=== PATIENT | female | born 1975 | race Caucasian/White ===

== ENCOUNTER 2016-07-19 06:32 | Emergency (ER) | payer OTHER ==
[2016-07-19] MEDS ORDERED: BELLADONNA ALKALOIDS/PHENOBARB 60 ML BTL PO ONE (07:01)
[2016-07-19] MEDS ORDERED: LIDOCAINE HCL 20 ML UDC PO ONE (07:01)
[2016-07-19] MEDS ORDERED: MAG HYDROX/ALUMINUM HYD/SIMETH 30 ML UDC PO ONE (07:01)
[2016-07-19] MEDS ORDERED: PANTOPRAZOLE SODIUM 40 MG TABLET.EC PO ONE (07:01)
[2016-07-19] MEDS ORDERED: PANTOPRAZOLE SODIUM 40 MG TABLET.EC ONE (07:02)
--- NOTE | 2016-07-19 07:13 | ERNOTE ---
Abdominal HPI - Narrative Date of Service: 07/19/16 - General Chief Complaint: Abdominal Pain Source: patient - Immun/Allergies/Home Medications Immunizatons: IMMUNIZATION HX Immunizations Up to Date Yes History of Influenza Vaccine No Hx Pneumococcal Vaccination No Allergies/Adverse Reactions: Allergies aripiprazole [From Abilify] Allergy (Verified 07/19/16 06:54) ketorolac tromethamine [From Toradol] Allergy (Verified 07/19/16 06:54) Penicillins Allergy (Verified 07/19/16 06:54) Home Medications: HOME MEDICATIONS NK [No Home Medication] 07/19/16 [Last Taken Unknown] - History of Present Illness Narrative: 41 year old that had a sudden onset of LUQ pain that radiates to the epigastrium since 0300. The pain is severe and sharp. She was seen at [facility] and evaluated. She was transferred to [facility] for a supposed bowel obstruction. The CT was read by the ED physician and the radiology report was not seen by him. The radiology report clearly states that there was not bowel obstruction. She continues to have LUQ pain. The CT scan demonstrated large amounts of stool present. The CBC, lipase, and chemistries done at [facility] were unremarkable. Timing: constant Quality: severe Activities at Onset: sleep Modifying Factors - (Improves): Present: other - nothing Modifying Factors - (Worsens): Present: other - nothing Associated Symptoms: Present: denies symptoms Prior Abdominal Problems: Present: none Review of Systems - Review of Systems Constitutional: Present: no symptoms reported EYE: Present: no symptoms reported ENT: Present: no symptoms reported Respiratory: Present: no symptoms reported Cardiology: Present: no symptoms reported Gastrointestinal/Abdominal: Present: See HPI Genitourinary: Present: no symptoms reported Musculoskeletal: Present: no symptoms reported Skin: Present: no symptoms reported Neurological: Present: no symptoms reported Endocrine: Present: no symptoms reported Hematologic/Lymphatic: Present: no symptoms reported Psych: Present: no symptoms reported - Patient's Past Medical History Patient History - Medical: Anxiety Patient History - Cardiac/Respiratory: No pertinent hx Patient History - Cancer: No Hx of Cancer Patient History - Surgical Procedures: Hysterectomy Patient History - Other: None LMP (females 10-50): other - Social History Living Situations: alone Smoking Status: Current every day smoker Patient requests Smoking Cessation Consult: No Initiate information on Smoking Cessation: No Alcohol Use: rarely Drug Use: marijuana - Immunizations Immunizations Up to Date: Yes Hx Pneumococcal Vaccination: No History of Influenza Vaccine: No Physical Exam - Physical Exam General Appearance: Present: mild distress Eye Exam: Normal inspection: bilateral Ears, Nose, Throat: Present: normal ENT inspection Neck: Present: normal inspection Respiratory: Present: no respiratory distress Cardiovascular/Chest: Present: regular rate, rhythm Gastrointestinal/Abdominal: Present: nondistended, soft, tenderness - mild tenderness on palpation Neurological Exam: Present: alert, oriented, normal mood/affect, track man II-XII nml as tested Skin Exam: Present: normal color ED Progress - Results and Orders Patient's Lab Results:: I have reviewed the patient's lab results. - Vital Signs Patient's Vital Signs:: I have reviewed the patient's vital signs. Vital Signs: Vital Signs 07/19/16 06:35 Temperature 36.2 C L Pulse Rate 93 Respiratory 18 Rate Blood Pressure 108/64 O2 Sat by Pulse 97 Oximetry - Progress/Reassessment Chief Complaint: Abdominal Pain Progress:: Improved Progress Note-Subjective: 07/19/16 08:05 She will be given Golytely until a bowel movement is achieved. Departure - Departure Clinical Impression: Abdominal pain Disposition: Home self-care Condition: Fair Instructions: Abdominal Pain, Adult, [id number] Print Language: Tanzanian Additional Instructions: It is likely that the pain will resolve once you have had a bowel movement. Drink the Golytely until you have a bowel movement. If the pain is worse return to the ED.
[2016-07-19] MEDS ORDERED: ONDANSETRON HCL/PF 2 MG/ML VIAL ONE (07:35)
[2016-07-19] MEDS ORDERED: ONDANSETRON HCL/PF 2 MG/ML VIAL IV ONE (07:35)
[2016-07-19] MEDS ORDERED: HYDROmorphone HCL 1 MG/ML DISP.SYRIN IV ONE (07:53)
[2016-07-19] MEDS ORDERED: SOD CHLORIDE/NAHCO3/KCL/PEG'S 4,000 ML BTL PO PRN (08:04)
[2016-07-19] MEDS ORDERED: HYDROmorphone HCL 1 MG/ML DISP.SYRIN ONE (08:15)
[2016-07-19 08:26] VITALS: BP 102/60
== END 2016-07-19 09:05 | disposition home or self-care (01) ==
LOC: ER 06:32
DX: R10.9 Unspecified abdominal pain (principal); F17.210 Nicotine dependence, cigarettes, uncomplicated

== ENCOUNTER 2017-03-18 17:12 | Emergency (ER) | payer OTHER ==
[2017-03-18 17:59] LABS: Hematocrit 35.8 % (37.0-47.0); Hemoglobin 12.2 gm/dL (12.5-16.0); Mean Cell Volume 91.1 fl (78-100); Mean Corpuscular Hgb Conc 34.1 g/dl (32-36); Mean Platelet Volume 9.4 fl (6.0-9.5); Neutrophil # 4.4 K/mm3 (1.3-6.0); Neutrophil % 59.5 % (42-75.0); Platelet Count 279 K/mm3 (150-450); Red Blood Count 3.93 M/mm3 (4.2-5.4); Red Cell Distribution Width 13.6 % (11.5-14.0); White Blood Count 7.4 K/mm3 (4.0-10.5)
[2017-03-18 18:00] LABS: Urine Bilirubin Negative (NEGATIVE); Urine Blood Negative /ul (NEGATIVE); Urine Ketone Negative (NEGATIVE); Urine Nitrite Negative (NEGATIVE); Urine Protein Negative (NEGATIVE); Urine Specific Gravity 1.015 SP.GR. (1.005-1.010); Urine Urobilinogen Normal (NORMAL)
[2017-03-18 18:13] LABS: Urine Appearance Clear; Urine Bacteria TRACE; Urine Color Yellow; Urine RBC None Seen /hpf (0-5); Urine WBC TRACE /hpf (0-5)
--- NOTE | 2017-03-18 18:14 | ERNOTE ---
ER Female HPI Date of Service: 03/18/17 Stated Complaint: LOWER ABD PAIN Time Seen by Provider: 03/18/17 17:30 Source: patient Exam Limitations: no limitations Immunizations: IMMUNIZATION HX Immunizations Up to Date Yes History of Influenza Vaccine No Hx Pneumococcal Vaccination No Allergies/Adverse Reactions: Allergies aripiprazole [From Abilify] Allergy (Verified 03/18/17 17:20) ketorolac tromethamine [From Toradol] Allergy (Verified 03/18/17 17:20) Penicillins Allergy (Verified 03/18/17 17:20) Home Medications: HOME MEDICATIONS traMADol HCL [Ultram] 50 mg PO DAILY PRN #10 tablet 03/18/17 [Last Taken Unknown ] - History of Present Illness Narrative: Here for chronic abdominal pain. Patient states that she had an ultrasound done at [facility] last week which showed a 3.5 cm left ovarian cyst. Since states she is worried that they did not see her ovary on the right side. She complains that she has had this chronic abdominal pain for a while and she wants me to cut out her cyst on her ovary. She has not taken any medication for this pain. She feels bloated. She's had no fevers some nausea but no vomiting. Review of Systems - Review of Systems Constitutional: Present: no symptoms reported EYE: Present: no symptoms reported ENT: Present: no symptoms reported Respiratory: Present: no symptoms reported Cardiology: Present: no symptoms reported Gastrointestinal/Abdominal: Present: See HPI Musculoskeletal: Present: no symptoms reported Skin: Present: no symptoms reported - Patient's Past Medical History Patient History - Medical: Anxiety Patient History - Cardiac/Respiratory: No pertinent hx Patient History - Cancer: No Hx of Cancer Patient History - Surgical Procedures: Hysterectomy Patient History - Other: None - Social History Living Situations: home Psych History: Hx of Anxiety Alcohol Use: none Drug Use: none, marijuana - Immunizations Immunizations Up to Date: Yes Hx Pneumococcal Vaccination: No History of Influenza Vaccine: No Physical Exam - Physical Exam General Appearance: Present: wd/wn, alert, no apparent distress Head Exam: Present: normal inspection, no evidence of injury Neck: Present: normal inspection Respiratory: Present: no respiratory distress, normal breath sounds, no accessory muscle use Cardiovascular/Chest: Present: regular rate, rhythm, no murmur, normal peripheral pulses Gastrointestinal/Abdominal: Present: normal bowel sounds, nontender, soft, no organomegaly, other - patient has a minimal abdominal distention there are no masses belly is completely soft there is no rebound tenderness. Pelvic Exam: Present: other - patient states that she has had pelvic bleeding off and on but she has none now. She is not dizzy her vitals are stable. Extremity Exam: Present: normal inspection ED Progress - Results and Orders Patient's Lab Results:: I have reviewed the patient's lab results. - Vital Signs Patient's Vital Signs:: I have reviewed the patient's vital signs. Vital Signs: Vital Signs 03/18/17 03/18/17 17:15 17:32 Temperature 37.1 C Pulse Rate 92 89 Respiratory 12 Rate Blood Pressure 133/86 129/75 O2 Sat by Pulse 98 98 Oximetry - X-Ray X-Ray #1 X-Ray: abdomen - Progress/Reassessment Chief Complaint: Genitourinary Problem Plan - Plan Plan: Patient's white count is within normal limits her urinalysis is normal her urine tox screen is positive for cannabis, her x-ray reveals large amount of stool. I offered the patient Ultram but she refused this examiner will give her a prescription for Ultram regardless just in case she needs it. 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 Departure Clinical Impression: Chronic abdominal pain - Departure Disposition: Home self-care Condition: Good Instructions: Chronic Pain Referrals: Sybil Dwyer ARNP [Primary Care Provider] - Prescriptions: traMADol HCL [Ultram] 50 mg PO DAILY PRN #10 tablet PRN Reason: Pain
[2017-03-18 18:31] LABS: Cocaine Ur Negative (NEGATIVE); Urine Barbiturate Negative (NEGATIVE); Urine Benzodiazepines Negative (NEGATIVE); Urine Opiates Negative (NEGATIVE); Urine PCP Negative (NEGATIVE); Urine THC Positive (NEGATIVE)
[2017-03-18 18:43] VITALS: BP 112/49
== END 2017-03-18 18:48 | disposition home or self-care (01) ==
LOC: ER 17:12
DX: R10.9 Unspecified abdominal pain (principal); G89.29 Other chronic pain

== ENCOUNTER 2017-05-04 11:54 | Emergency (ER) | payer OTHER ==
[2017-05-04] MEDS ORDERED: METOCLOPRAMIDE HCL 5 MG/ML VIAL IV ONE (12:09)
[2017-05-04] MEDS ORDERED: diphenhydrAMINE HCL 50 MG/ML VIAL IV ONE (12:09)
[2017-05-04] MEDS ORDERED: NORMAL SALINE 1,000 ML IV ONE (12:09)
[2017-05-04] MEDS ORDERED: DIATRIZOATE MEGLUMINE, SODIUM 30 ML BTL PO ONE (12:14)
[2017-05-04] MEDS ORDERED: DIATRIZOATE MEGLUMINE, SODIUM 30 ML BTL ONE (12:19)
[2017-05-04] MEDS ORDERED: diphenhydrAMINE HCL 50 MG/ML VIAL ONE (12:19)
[2017-05-04] MEDS ORDERED: METOCLOPRAMIDE HCL 5 MG/ML VIAL ONE (12:19)
[2017-05-04 12:25] LABS: Hematocrit 39.3 % (37.0-47.0); Hemoglobin 13.4 gm/dL (12.5-16.0); Mean Cell Volume 90.3 fl (78-100); Mean Corpuscular Hemoglobin 30.8 pg (27-31); Mean Corpuscular Hgb Conc 34.1 g/dl (32-36); Mean Platelet Volume 9.6 fl (6.0-9.5); Neutrophil # 3.4 K/mm3 (1.3-6.0); Neutrophil % 53.5 % (42-75.0); Platelet Count 311 K/mm3 (150-450); Red Blood Count 4.35 M/mm3 (4.2-5.4); Red Cell Distribution Width 13.5 % (11.5-14.0); White Blood Count 6.4 K/mm3 (4.0-10.5)
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
[2017-05-04 12:51] LABS: Albumin * 4.2 gm/dl (3.4-5.0); Anion Gap 13.9 mmol/L (6.8-13.8); BUN/Creatinine Ratio 13.9 (9.0-21.6); Bilirubin, Total 0.2 mg/dL (0.0-1.1); Ca. Corrected For Albumin 8.6 mg/dL (8.4-10.2); Calcium * 9.1 mg/dL (7.9-10.9); Carbon Dioxide 27.6 mmol/L (24-32.6); Potassium 4.5 mmol/L (3.4-4.6)
[2017-05-04] MEDS ORDERED: DICYCLOMINE HCL 10 MG/ML AMPUL IM ONE ×2 (13:53→13:54)
[2017-05-04 15:38] VITALS: BP 127/68
== END 2017-05-04 15:34 | disposition home or self-care (01) ==
LOC: ER 11:54
DX: R10.9 Unspecified abdominal pain (principal); G89.29 Other chronic pain; Z87.891 Personal history of nicotine dependence; F41.9 Anxiety disorder, unspecified